=== PATIENT | male | born 1990 | race Caucasian/White ===

== ENCOUNTER 2024-03-20 10:15 | Day surgery (SDC) | payer OTHER ==
[~2024-03-20] VITALS: Ht 177.8 cm; Wt 103.9 kg
[~2024-03-20 10:15] MED LIST: CEFAZOLIN SOD 1 GM in D5W 50 ML IV ONE
[2024-03-20 11:37] VITALS: O2SAT 96
[2024-03-20] MEDS ORDERED: LABETALOL 100 MG/ 20ML VIAL IVP PRN (13:15)
[2024-03-20] MEDS ORDERED: HYDROmorphone 1 MG/ML INJ. CARTRIDGE IVP PRN ×2 (13:15)
[2024-03-20] MEDS ORDERED: METOCLOPRAMIDE HCL 10 MG/2 ML VIAL IVP PRN (13:15)
[2024-03-20] MEDS ORDERED: ePHEDrine sulfate 50 MG/ML VIAL IVP PRN (13:15)
[2024-03-20] MEDS ORDERED: METOCLOPRAMIDE HCL 10 MG/2 ML VIAL ONE (13:45)
[2024-03-20] MEDS ORDERED: MIDAZOLAM HCL 5 MG/ML VIAL (VERSED) IV ONE (13:45)
[2024-03-20] MEDS ORDERED: ROCURONIUM BROMIDE 10 MG/ML (ZEMURON) ONE (13:45)
[2024-03-20] MEDS ORDERED: ONDANSETRON HCL 4 MG/2 ML VIAL ONE ×2 (13:45→14:09)
[2024-03-20] MEDS ORDERED: WATER FOR IRRIGATION,STERILE 1,000 ML IRRIG.SOLN IR ONE (13:45)
[2024-03-20] MEDS ORDERED: LR 1,000 ML IV.SOLN IV ONE (13:45)
[2024-03-20] MEDS ORDERED: BUPIVACAINE /EPINEPHRINE/PF 0.25% 30 ML VIAL ONE (13:45)
[2024-03-20] MEDS ORDERED: HYDROmorphone 2 MG/ML VIAL ONE (13:45)
[2024-03-20] MEDS ORDERED: SEVOFLURANE 15 MIN GAS INH ONE (13:45)
[2024-03-20] MEDS ORDERED: fentaNYL CITRATE/PF 100 MCG/2 ML AMP ONE (13:45)
[2024-03-20] MEDS ORDERED: NS IRRIG SOLN 1000 ML IR ONE (13:45)
[2024-03-20] MEDS ORDERED: PROPOFOL 200MG/ 20ML VIAL (DIPRIVAN) IV ONE (13:45)
[2024-03-20] MEDS ORDERED: HYDROmorphone 1 MG/ML INJ. CARTRIDGE ONE ×2 (13:51→14:23)
[2024-03-20] MEDS: HYDROmorphone 1 MG/ML INJ. CARTRIDGE IVP PRN (13:55)
[2024-03-20] MEDS: ONDANSETRON HCL 4 MG/2 ML VIAL IVP PRN (14:10)
[2024-03-20 16:06] VITALS: BP_SYST 135; PULSE 78; RESP 18
== END 2024-03-20 15:41 | disposition home or self-care (01) ==
LOC: SMU 10:15 → SDS 10:15
PROVIDERS: ATTEND Surgery
DX: K42.0 Umbilical hernia with obstruction, without gangrene (principal); K21.9 Gastro-esophageal reflux disease without esophagitis; G93.5 Compression of brain; Z91.048 Other nonmedicinal substance allergy status; Z79.899 Other long term (current) drug therapy
CPT/HCPCS: 87081; 49592; C1781; J3490; J0690; J2765; J2250; J2405; J2704; J3010; J1170 ×2; J7060; J7120